=== PATIENT | female | born 1965 | race Caucasian/White ===

== ENCOUNTER → 2017-06-28 08:59 | Outpatient (POV) | payer MEDICAID, SELFPAY | PROVIDERS: Visit Provider Dentist | DX: Z00.00 Encounter for general adult medical examination without abnormal findings (principal) ==

== ENCOUNTER → 2017-09-27 09:57 | Outpatient (POV) | payer MEDICAID, SELFPAY | PROVIDERS: Visit Provider Dentist | DX: Z00.00 Encounter for general adult medical examination without abnormal findings (principal) ==

== ENCOUNTER 2020-10-06 16:04 | Emergency (ER) | payer MEDICAID, SELFPAY ==
[2020-10-06] VITALS (7 sets, daily range): BP systolic 00–188; BP diastolic 00–107; PULSE 0–110; RESP 0–20; TEMP -17.7–36.9; O2SAT 0–100; BMI 21.9
--- NOTE | 2020-10-06 16:19 | HMH.EDGENADL ---
ED Disposition Clinical Impression: Hyponatremia, Alcoholism Urinary tract infection Qualifiers: Urinary tract infection type: site unspecified Hematuria presence: without hematuria Qualified Code(s): N39.0 - Urinary tract infection, site not specified Sepsis Qualifiers: Sepsis type: sepsis due to unspecified organism Sepsis acute organ dysfunction status: without acute organ dysfunction Qualified Code(s): A41.9 - Sepsis, unspecified organism Altered mental status Qualifiers: Altered mental status type: unspecified Qualified Code(s): R41.82 - Altered mental status, unspecified Disposition: Left Against Medical Advice Condition on Discharge: Fair - Critical Care Critical Care Time: No Attestation: On 10/06/20, the high probability of a clinically significant, sudden or life threatening deterioration of the following system(s) required my full and direct attention, intervention and personal management. The time I documented below is in addition to time spent performing reported procedures but includes the following listed in this critical care notation. Medical Decision Making - Medical Records Medical records reviewed: Yes: I reviewed the patient's medical records. MR Comment: Medical records received from [facility]. Patient admitted there 09/30/2020 through 10/04/2020, insisted on going home on that day although was advised to stay in the hospital. Although daughter states that the patient was taken therefore infusion, I can find no documentation of reported confusion or witnessed confusion. Diagnosed with severe hyponatremia thought to be secondary to alcoholism, required hypertonic saline. Hypokalemia, alcoholism, COPD, lung mass, anemia. Discharged on fluid restriction and saline tablets. Return to the emergency department yesterday, the day after being discharged. Complains of generalized weakness, wanting pain medication and nerve medication. Discharged from the emergency department. Sodium was 139 yesterday. Sodium was 110 on admission to the hospital 09/30/2020. - Ralph Inquiry Pt receiving controlled substance: No Vital Signs: 10/06/20 16:07 10/06/20 16:17 10/06/20 16:45 Temperature 98.5 F Temperature Source Oral Pulse Rate 108 H 110 H Pulse Rate [Right] 109 H Respiratory Rate 20 17 16 Blood Pressure 188/107 H 166/105 H Blood Pressure [Left Arm] 188/107 H Blood Pressure Mean 127 128 Blood Pressure Mean [Left Arm] 134 Blood Pressure Source Blood Pressure Source [Left Arm] Automatic Cuff Blood Pressure Position Blood Pressure Position [Left Arm] Supine 02 Sat by Pulse Oximetry 99 100 100 Oxygen Delivery Method Room Air 10/06/20 16:54 10/06/20 17:30 10/06/20 17:47 Temperature Temperature Source Pulse Rate 87 87 91 H Pulse Rate [Right] Respiratory Rate 14 14 14 Blood Pressure 169/95 H 182/92 H 187/103 H Blood Pressure [Left Arm] Blood Pressure Mean 133 130 Blood Pressure Mean [Left Arm] Blood Pressure Source Blood Pressure Source [Left Arm] Blood Pressure Position Blood Pressure Position [Left Arm] 02 Sat by Pulse Oximetry 96 95 95 Oxygen Delivery Method 10/06/20 19:11 Temperature 0 F L Temperature Source Oral Pulse Rate 0 L Pulse Rate [Right] Respiratory Rate 0 L Blood Pressure 00/00 L Blood Pressure [Left Arm] Blood Pressure Mean Blood Pressure Mean [Left Arm] Blood Pressure Source Automatic Cuff Blood Pressure Source [Left Arm] Blood Pressure Position Sitting Blood Pressure Position [Left Arm] 02 Sat by Pulse Oximetry Oxygen Delivery Method Room Air - Lab Data Lab Results 10/06/20 16:45: WBC 13.5 H, RBC 3.26 L, Hgb 10.6 L, Hct 31.3 L, MCV 96.0, MCH 32.5 H, MCHC 33.8, RDW 14.1, Plt Count 499 H, MPV 7.7, Neut % (Auto) 70.0, Lymph % (Auto) 25.8, Cassia % (Auto) 3.9, Eos % (Auto) 0.1, Baso % (Auto) 0.2, Neut # (Auto) 9.5 H, Lymph # (Auto) 3.5, Cassia # (Auto) 0.5, Eos # (Auto) 0.0, Baso # (Auto) 0.0 10/06
--- NOTE | 2020-10-06 16:32 | PC.NURSE ---
spoke with rajinder [facility] associate at [place] to request records on pt. States she will fax over records
--- NOTE | 2020-10-06 16:39 | CT_ITS ---
PROCEDURE INFORMATION: Exam: CT Head Without Contrast Exam date and time: 10/06/2020 4:39 PM Age: 55 years old Clinical indication: Altered mental status/memory loss; Prior surgery; Surgery date: 6+ months; Surgery type: Teeth removed; Patient HX: AMS TECHNIQUE: Imaging protocol: Computed tomography of the head without contrast. Radiation optimization: All CT scans at this facility use at least one of these dose optimization techniques: automated exposure control; mA and/or kV adjustment per patient size (includes targeted exams where dose is matched to clinical indication); or iterative reconstruction. COMPARISON: No relevant prior studies available. FINDINGS: Brain: No acute intracranial hemorrhage, cerebral edema, or midline shift. Cerebral ventricles: No hydrocephalus. Paranasal sinuses: Minor right sphenoid sinusitis is present. Mastoid air cells: Visualized mastoid air cells are well aerated. Orbital cavity: Unremarkable as visualized. Bones/joints: No acute fracture. Soft tissues: Unremarkable. IMPRESSION: No acute intracranial abnormality.
--- NOTE | 2020-10-06 16:39 | XR_ITS ---
PROCEDURE INFORMATION: Exam: XR Chest Exam date and time: 10/06/2020 4:39 PM Age: 55 years old Clinical indication: Shortness of breath; Additional info: SOA TECHNIQUE: Imaging protocol: XR of the chest. Views: 4 or more views. COMPARISON: No relevant prior studies available. FINDINGS: Lungs: Unremarkable. No consolidation. Pleural spaces: Unremarkable. No pleural effusion. No pneumothorax. Heart/Mediastinum: Unremarkable. No cardiomegaly. Bones/joints: There is a probable chronic posterior left 8th rib fracture. IMPRESSION: No acute abnormality.
--- NOTE | 2020-10-06 16:39 | XR_ITS ---
PROCEDURE INFORMATION: Exam: XR Right Hip Exam date and time: 10/06/2020 4:39 PM Age: 55 years old Clinical indication: Hip pain; Right hip TECHNIQUE: Imaging protocol: XR Right hip. Views: 2 or 3 views hip with pelvis when performed. COMPARISON: No relevant prior studies available. FINDINGS: Bones/joints: Unremarkable. No acute fracture. Soft tissues: Unremarkable. IMPRESSION: No acute findings.
[2020-10-06 16:59] LABS: Microscopic, Urine URINE MICROSCOPIC (MICROSCOPIC)
[2020-10-06 17:01] LABS: Basophils % 0.2 % (0.1-2.0); Eosinophils % 0.1 % (0.1-12.0); Hematocrit 31.3 % (37.0-47.0); Hemoglobin 10.6 g/dL (12.2-16.2); Lymphocytes # 3.5 K/mm3 (0.7-4.5); Lymphocytes % 25.8 % (10-50); Mean Corpuscular HGB Conc 33.8 g/dL (31.8-35.4); Mean Corpuscular Hemoglobin 32.5 pg (27.0-31.2); Mean Platelet Volume 7.7 fl (7.4-10.4); Monocytes # 0.5 K/mm3 (0.1-1.0); Monocytes % 3.9 % (1.7-9.3); Neutrophils # 9.5 K/mm3 (1.8-7.8); Platelet Count 499 K/mm3 (142-424); Red Blood Count 3.26 M/mm3 (4.20-5.40); Red Cell Distribution Width 14.1 % (11.5-17.5); White Blood Count 13.5 K/mm3 (4.8-10.8)
[2020-10-06 17:06] LABS: Appearance,Urine CLEAR (Clear); Bilirubin,Urine Negative (Negative); Blood, Urine Negative (Negative); Color,Urine YELLOW (Yellow); Glucose,Urine (UA) Negative (Negative); Ketones,Urine Negative (Negative); Leukocyte Esterase,Urine Negative (Negative); Nitrate,Urine Negative (Negative); Protein,Urine Negative (Negative); Specific Gravity, Urine 1.015 (1.005-1.030); Urobilinogen,Urine 0.2 EU/dl (0.2)
[2020-10-06 17:07] LABS: Chloride 89 mmol/L (98-107); Sodium 123 mmol/L (136-145)
[2020-10-06 17:10] LABS: Alanine Aminotransferase 29 U/L (12-78); Albumin Level 4.7 g/dl (3.5-5.0); Albumin/Globulin Ratio 1.6 (1.1-1.8); Alkaline Phosphatase 81 U/L (38-126); Aspartate Amino Transferase 36 U/L (14-36); Bilirubin,Total 0.4 mg/dl (0.2-1.3); Blood Urea Nitrogen 4 mg/dl (7-17); Calcium 9.5 mg/dl (8.4-10.2); Carbon Dioxide 26 mmol/L (22.0-30.0); Creatinine Clearance Estimated 137 mL/min (50-200); Estimated Glomerular Filt Rate 166 ml/min (>60); GFR (African American) 201 ML/MIN (>60); Globulin 2.9 g/dL (1.3-3.2); Glucose 97 mg/dl (74-100); Total Protein,Serum 7.6 g/dl (6.3-8.2)
[2020-10-06 17:12] LABS: Ethyl Alcohol < 10 mg/dl (0-10)
[2020-10-06 17:24] LABS: Bacteria,Urine 3+ /lpf; WBC,Urine TNTC #/hpf (0-3)
--- NOTE | 2020-10-06 17:24 | ECG_ITS ---
APPROVED REPORT Exam: Resting ECG HR:91 bpm ECG Measurements Heart Rate 91 AXES CO 150 P 88 QRSd 68 QRS 80 QT 338 T 65 QTc 415 Conclusion Normal sinus rhythm Normal ECG Electronically signed by : Hermes Carter, 10/08/2020 10:25:34
[2020-10-06 17:27] LABS: Troponin I < 0.01 ng/ml (0.00-0.034)
[2020-10-06 17:28] LABS: Amphetamine/Metha Screen,Urine Negative ng/ml (<1000); Barbiturates Screen,Urine Negative ng/ml (<200); Benzodiazepines Screen,Urine Positive ng/ml (<200); Cannabinoid Screen,Urine Negative ng/ml (<50); Cocaine Screen,Urine Negative ng/ml (<300); Methadone Screen,Urine Negative ng/ml (<300); Opiate Screen,Urine Negative ng/ml (<300); Phencyclidine Screen,Urine Negative ng/ml (<25)
[2020-10-06 17:37] LABS: Anion Gap 11.7 mEq/L (5-15); Potassium 3.7 mmoL/L (3.5-5.1)
--- NOTE | 2020-10-06 18:53 | PC.NURSE ---
ARGUING WAS HEARD FROM NURSES STATION FROM BED 6. I WALKED INTO ROOM AND PATIENT AND DAUGHTER WERE IN A PHYSICAL ALTERCATION WHERE DAUGHTER WAS TRYING TO MAKE PATIENT STAY IN THE BED AND TELLING HER THAT SHE NEEDS TO STAY IN THE HOSPITAL, AND PATIENT IS SAYING THAT SHE DOES NOT WANT TO STAY AND WANTS TO LEAVE IMMEDIATELY. I ATTEMPTED TO EXPLAIN TO PATIENT THAT MEDICALLY IT WOULD BE IN HER BEST INTEREST TO STAY AND GET THE TREATMENT, BUT PATIENT IS PERSISTENT ON LEAVING. DAUGHTER HAS LEFT THE ROOM, PATIENT HAS CALMED DOWN AND STILL SITTING ON EDGE OF BED. NOTIFIED.
[2020-10-06 18:57] LABS: Lactic Acid 1.4 mmol/L (0.7-2.1)
[2020-10-06 18:57] LABS: Ammonia < 9 umol/L (9-30)
--- NOTE | 2020-10-06 19:09 | PC.NURSE ---
IN ROOM SPEAKING WITH PATIENT ABOUT PATIENT HEALTH ISSUES AND PATIENT LEAVING AMA. DR LAMAS DEEMS PATIENT OF SOUND MIND AND SAYS THAT SHE IS OK TO SIGN AMA PAPERS HERSELF.
--- NOTE | 2020-10-06 19:10 | PC.NURSE ---
THIS NURSE IN ROOM WITH AMA PAPER, AND PATIENT SIGNED THEM. PATIENT WAS AMBULATORY AND LEFT ER AT THIS TIME.
[2020-10-06 19:12] LABS: Adenovirus,PCR Not Detected (NotDetected); Bordetella Pertussis Not Detected (NotDetected); Chlamydophila Pneumoniae, PCR Not Detected (NotDetected); Coronavirus 19, PCR Not Detected (NotDetected); Coronavirus 229E Not Detected (NotDetected); Coronavirus NL63 Not Detected (NotDetected); Coronavirus OC43 Not Detected (NotDetected); Coronovirus HKU1,PCR Not Detected (NotDetected); Human Metapneumovirus Not Detected (NotDetected); Influenza A, PCR Not Detected (NotDetected); Influenza AH1, 2009 Not Detected (NotDetected); Influenza AH1, PCR Not Detected (NotDetected); Influenza AH3,PCR Not Detected (NotDetected); Influenza B, PCR Not Detected (NotDetected); Mycoplasma Pneumoniae, PCR Not Detected (NotDetected); Parainfluenza 1, PCR Not Detected (NotDetected); Parainfluenza 2, PCR Not Detected (NotDetected); Parainfluenza 3, PCR Not Detected (NotDetected); Parainfluenza 4, PCR Not Detected (NotDetected); Respiratory Syncytial Virus Not Detected (NotDetected); Rhinovirus/Enterovirus Not Detected (NotDetected)
== END 2020-10-06 19:14 | disposition left against medical advice (07) ==
PROVIDERS: Emergency Provider Emergency Medicine; PCP Nurse Practitioner Family
DX: E87.1 Hypo-osmolality and hyponatremia (principal); F10.20 Alcohol dependence, uncomplicated; N39.0 Urinary tract infection, site not specified; A41.9 Sepsis, unspecified organism; M25.551 Pain in right hip
CPT/HCPCS: 70450; 71045; 73502; 80053; 80305; 81001; 82140; 83605; 84484; 85025; 87040; 87086; 87581; 87633; 87798; 93005; 96365; 96375; 99284